=== PATIENT | male | born 1980 | race Caucasian/White ===

== ENCOUNTER 2023-10-26 06:31 | Emergency (ER) | payer BC, OTHER ==
[~2023-10-26] VITALS: Ht 190.5 cm; Wt 81.8 kg
[2023-10-26 06:37] VITALS: PULSE 62; RESP 16; TEMP 97.6; O2SAT 98
[2023-10-26] MEDS: ketorolac trometh 30MG/ML vial 30 MG/ML VIAL IM ONE (06:45)
[2023-10-26] MEDS ORDERED: DIAZ5TAB PO (06:46)
[2023-10-26] MEDS ORDERED: OXYC-658 PO (06:46)
== END 2023-10-26 06:56 | disposition home or self-care (01) ==
LOC: ER 06:31 → EEVIPCON 06:31 → ER 06:56
DX: M54.9 Dorsalgia, unspecified (principal)
CPT/HCPCS: 96372; 99283; J1885